=== PATIENT | female | born 1935 | race Caucasian/White ===

== ENCOUNTER → 2016-07-09 | Outpatient (CLI) | payer OTHER, BC ==
[~2016-07-09] MED LIST: ALTOPREV40 MG PO; ATENOLOL50 M1 PO; ATENOLOL50 MG PO; AZO CRANBERRY1 EACH PO; B12 5,000 MCG1 EACH SL; CALTRATE 600600 MG PO; CENTRUM SILVER1 EAC3 PO; CENTRUM SILVER1 EACH PO; CYMBALTA60 MG PO; ESTROVEN 155 M155 MG PO; ESTROVEN ENER400 MCG PO; EXCEDRIN1 TABLET PO; FLAX OIL1000 MG PO; HYDROCHLOROTHIA25 MG PO; INDERAL LA120 MG; KLOR-CON M2020 MEQ; KLOR-CON M2020 MEQ PO; LEVO-T50 MCG PO; LOSARTAN POTASS50 MG PO; MECLIZINE HCL25 M3 PO; METFORMIN HCL500 MG PO; METOCLOPRAMIDE10 MG; ONDANSETRON HCL4 M1; PREVACID15 MG PO; PROMETHAZINE12.5 M1; PROTONIX40 MG PO; PROZAC40 MG PO; RESTORIL15 MG PO; SYNTHROID50 MCG PO; VASCEPA1 GM PO; VITAMIN D3400 UNI2 PO; VITAMIN D35000 UNIT PO
[2016-07-09 12:40] LABS: POINT-OF-CARE METER ID UU13113694
[2016-07-09 14:14] LABS: POINT-OF-CARE METER ID UU13113819
== END | disposition home or self-care (01) ==
LOC: AMB 11:30
PROVIDERS: Internal Medicine Gastroenterology
PROC: 0W3P8ZZ Control Bleeding in Gastrointestinal Tract, Via Natural or Artificial Opening Endoscopic (ICD-10-PCS; principal; 2016-07-09)
DX: D50.9 Iron deficiency anemia, unspecified (principal); Q27.33 Arteriovenous malformation of digestive system vessel; I10 Essential (primary) hypertension; E11.9 Type 2 diabetes mellitus without complications; K21.9 Gastro-esophageal reflux disease without esophagitis
CPT/HCPCS: 82948